=== PATIENT | male | born 1955 | race Caucasian/White ===

== ENCOUNTER 2017-08-01 04:18 | Inpatient (IN) | payer OTHER ==
[~2017-08-01] VITALS: Ht 172.7 cm; Wt 79.9 kg
[2017-08-01 05:18] LABS: BASOPHIL % 0.1 % (0-2); PLATELET COUNT 244 x10^3mcL (130-400)
[2017-08-01 05:25] LABS: RED CELL DISTRIBUTION WIDTH 14.9 % (11.5-14.5)
[2017-08-01 05:31] LABS: CALCIUM 8.9 mg/dL (8.5-10.1); CARBON DIOXIDE 28.7 mmol/L (21-32); CHLORIDE SERUM 103 mmol/L (98-107); GFR1 > 60 mL/min; GLUCOSE SERUM 135 mg/dL (74-106); POTASSIUM SERUM 4.2 mmol/L (3.5-5.1); SODIUM SERUM 139 mmol/L (136-145)
[2017-08-01 05:35] LABS: ALKALINE PHOSPHATASE 89 U/L (46-116); ALT/SGPT 38 U/L (16-63); AST/SGOT 33 U/L (15-37); LIPASE 219 IU/L (73-393); TOTAL PROTEIN, SERUM 7.5 g/dL (6.4-8.2)
[2017-08-01 07:11] LABS: microscopic required? NO
[2017-08-01 07:24] LABS: UA SPECIFIC GRAVITY >=1.030 (1.005-1.035); urine erythrocyte NEGATIVE (NEGATIVE)
[2017-08-01] MEDS ORDERED: CRESTOR10 M1 PO (07:30)
[2017-08-01 08:46] LABS: T3 TOTAL 1.21 ng/mL
[2017-08-01 08:59] LABS: CHOLESTEROL/HDL RATIO 1.6; MAGNESIUM 2.1 mg/dL (1.8-2.4); PHOSPHOROUS 3.7 mg/dL (2.5-4.9)
[2017-08-01 09:22] LABS: FREE T4 0.88 ng/dL (0.76-1.46); FREE THYROXINE INDEX 2.6 ug/dL (1.4-4.5); T4(THYROXINE) 7.7 ug/dL (4.7-13.3)
[2017-08-01 10:25] VITALS: BP 114/69
[2017-08-01 17:50] VITALS: BP 133/71
[2017-08-01 22:00] VITALS: BP 118/66
[2017-08-02 05:11] VITALS: BP 132/77
[2017-08-02 06:12] LABS: BASOPHIL % 0.1 % (0-2); PLATELET COUNT 207 x10^3mcL (130-400)
[2017-08-02 06:40] LABS: RED CELL DISTRIBUTION WIDTH 15.4 % (11.5-14.5)
[2017-08-02 06:42] LABS: CALCIUM 8.7 mg/dL (8.5-10.1); CARBON DIOXIDE 29.1 mmol/L (21-32); CHLORIDE SERUM 104 mmol/L (98-107); CREATININE SERUM 0.9 mg/dL (0.7-1.3); GFR1 > 60 mL/min; GLUCOSE SERUM 107 mg/dL (74-106); PHOSPHOROUS 3.1 mg/dL (2.5-4.9); POTASSIUM SERUM 4.5 mmol/L (3.5-5.1); SODIUM SERUM 139 mmol/L (136-145)
[2017-08-02 11:02] VITALS: BP 127/66
[2017-08-02 15:12] VITALS: BP 148/71
[2017-08-02 17:41] VITALS: BP 129/70
[2017-08-02 21:04] VITALS: BP 111/67
[2017-08-03 07:25] LABS: BASOPHIL % 0.1 % (0-2); PLATELET COUNT 181 x10^3mcL (130-400)
[2017-08-03 07:27] LABS: RED CELL DISTRIBUTION WIDTH 15.1 % (11.5-14.5)
[2017-08-03 07:42] LABS: CALCIUM 8.7 mg/dL (8.5-10.1); CARBON DIOXIDE 28.4 mmol/L (21-32); CHLORIDE SERUM 104 mmol/L (98-107); CREATININE SERUM 0.8 mg/dL (0.7-1.3); GFR1 > 60 mL/min; GLUCOSE SERUM 89 mg/dL (74-106); MAGNESIUM 1.9 mg/dL (1.8-2.4); PHOSPHOROUS 2.4 mg/dL (2.5-4.9); POTASSIUM SERUM 4.4 mmol/L (3.5-5.1); SODIUM SERUM 137 mmol/L (136-145)
[2017-08-03 08:15] VITALS: BP 130/74
[2017-08-03 14:50] VITALS: BP 141/76
[2017-08-03 18:14] VITALS: BP 134/73
[2017-08-03 20:00] VITALS: BP 136/75
[2017-08-03 22:00] VITALS: BP 132/76
[2017-08-04 06:07] VITALS: BP 146/76
[2017-08-04 06:32] LABS: BASOPHIL % 0.4 % (0-2); PLATELET COUNT 193 x10^3mcL (130-400)
[2017-08-04 06:37] LABS: CALCIUM 8.7 mg/dL (8.5-10.1); CARBON DIOXIDE 30.6 mmol/L (21-32); CHLORIDE SERUM 103 mmol/L (98-107); CREATININE SERUM 0.7 mg/dL (0.7-1.3); GFR1 > 60 mL/min; GLUCOSE SERUM 98 mg/dL (74-106); PHOSPHOROUS 2.3 mg/dL (2.5-4.9); POTASSIUM SERUM 3.8 mmol/L (3.5-5.1); SODIUM SERUM 141 mmol/L (136-145)
[2017-08-04 06:49] LABS: RED CELL DISTRIBUTION WIDTH 14.7 % (11.5-14.5)
[2017-08-04 09:32] VITALS: BP 160/83
[2017-08-04 13:59] VITALS: BP 153/82
[2017-08-04] MEDS ORDERED: LAC PO (14:22)
[2017-08-04] MEDS ORDERED: COL100 PO (14:22)
[2017-08-04] MEDS ORDERED: NORCO1 TA2 PO (14:24)
[2017-08-04] MEDS ORDERED: AUG500 PO (14:27)
[2017-08-04 14:34] VITALS: BP 153/82
== END 2017-08-04 15:45 | disposition home or self-care (01) | DRG 326 ==
LOC: ED 04:18 → DU 07:26 → MU 07:26 → DU 08:25 → MU 08-03 14:12
PROVIDERS: Emergency Medicine; Surgery; ADMIT Family Medicine Sports Medicine
PROC: 0DQ60ZZ Repair Stomach, Open Approach (ICD-10-PCS; principal; 2017-08-01 09:15)
DX: K28.5 Chronic or unspecified gastrojejunal ulcer with perforation (principal); N17.0 Acute kidney failure with tubular necrosis; R31.0 Gross hematuria; R73.03 Prediabetes; N31.8 Other neuromuscular dysfunction of bladder; R33.8 Other retention of urine; E02 Subclinical iodine-deficiency hypothyroidism; E83.39 Other disorders of phosphorus metabolism; D64.9 Anemia, unspecified; Z98.84 Bariatric surgery status; Z68.26 Body mass index [BMI] 26.0-26.9, adult
CPT/HCPCS: 82962; 83880; 84439; 97110-GP; 97530-GP; J0330; J0690; J1170; J1644; J1885; J2250; J2270; J2405; J2543; J2704; J2710; J2765; J3010; J3490; J7030; J7042; J7120; Q0092